=== PATIENT | male | born 1955 | race Caucasian/White ===

== ENCOUNTER 2021-02-26 11:43 | Outpatient (CLI) | payer MEDICARE, OTHER | END 2021-02-26 11:44 | disposition home or self-care (01) | LOC: CSHWCC 11:43 | PROVIDERS: ATTEND Nurse Practitioner Family | DX: T81.89XD Other complications of procedures, not elsewhere classified, subsequent encounter (principal); E11.621 Type 2 diabetes mellitus with foot ulcer; L97.509 Non-pressure chronic ulcer of other part of unspecified foot with unspecified severity; R60.0 Localized edema; D64.9 Anemia, unspecified; E78.5 Hyperlipidemia, unspecified; F32.9 Major depressive disorder, single episode, unspecified; I13.2 Hypertensive heart and chronic kidney disease with heart failure and with stage 5 chronic kidney disease, or end stage renal disease; I50.9 Heart failure, unspecified; N18.6 End stage renal disease; T86.821 Skin graft (allograft) (autograft) failure | CPT/HCPCS: 82962; 97139; G0277; G0463; 36416; 99213 ==

== ENCOUNTER 2021-03-18 10:49 | Outpatient (CLI) | payer MEDICARE, OTHER | END 2021-03-18 10:50 | disposition home or self-care (01) | LOC: CSHRAD 10:49 | PROVIDERS: ATTEND Nurse Practitioner Family | DX: E11.621 Type 2 diabetes mellitus with foot ulcer (principal); M85.871 Other specified disorders of bone density and structure, right ankle and foot ==

== ENCOUNTER 2021-03-18 12:01 | Outpatient (CLI) | payer MEDICARE, OTHER | END 2021-03-18 12:02 | disposition home or self-care (01) | LOC: CSHWCC 12:01 | PROVIDERS: ATTEND Nurse Practitioner Family | DX: T86.821 Skin graft (allograft) (autograft) failure (principal); I11.0 Hypertensive heart disease with heart failure; I50.9 Heart failure, unspecified; I70.25 Atherosclerosis of native arteries of other extremities with ulceration | CPT/HCPCS: 99213; G0463 ==